=== PATIENT | male | born 1980 | race Caucasian/White ===

== ENCOUNTER 2016-05-09 21:45 | Emergency (ER) | payer MEDICAID ==
--- NOTE | 2016-05-09 22:08 | EDPHY ---
H & P Time Seen by Provider: 05/09/16 22:02 HPI/ROS: Chief complaint. Sinusitis, dental pain HPI. 35-year-old male here with congestion for 2 days and mid facial pain as well as right upper tooth pain that has been ongoing. He has a history of sinus infection and sphenoid sinus surgery. No fever. No sore throat cough trouble breathing. ROS Constitutional. no fever/chills, no weakness Eyes. no problems with vision ENT. Pressure and fullness to cheeks and mid forehead. Pain in the right upper posterior tooth Cardiovascular. no chest pain Respiratory. no shortness of breath, no cough Abdominal. no abdominal pain, no nausea/vomiting, no diarrhea . no problems urinating MS. no calf pain/swelling, no neck/back pain, no joint pain Skin. no rash Lymph. no swollen glands Neuro. no headache, no dizziness, no difficulty walking or with speech Past Medical/Surgical History: Past medical history sinusitis recurrent and sphenoid sinus surgery, hypothyroid Social History: Single, daily smoker, no alcohol Smoking Status: Current every day smoker Physical Exam: General Appearance: Alert well-developed male mild distress vital signs stable Eyes: Pupils equal and round no pallor or injection. ENT, tympanic membranes are normal. No septal hematoma or significant swelling inside the nose. No pharyngeal injection. Tenderness to percussion of the right upper posterior molar. No obvious abscess. Respiratory: There are no retractions, lungs are clear to auscultation. Cardiovascular: Regular rate and rhythm. Gastrointestinal: Abdomen is soft and nontender, no masses, bowel sounds normal. Neurological: Awake and alert, sensory and motor exams grossly normal. Skin: Warm and dry, no rashes. Musculoskeletal: Neck is supple nontender. Extremities symmetrical, full range of motion. Psychiatric: Patient is oriented X 3, there is no agitation. Constitutional: Initial Vital Signs Temperature (C) 37.1 C 05/09/16 21:54 Heart Rate 88 05/09/16 21:54 Respiratory Rate 16 05/09/16 21:54 Blood Pressure 126/86 H 05/09/16 21:54 O2 Sat (%) 94 05/09/16 21:54 O2 Delivery Mode Room Air Allergies/Adverse Reactions: aspirin Allergy (Intermediate, Verified 05/09/16 21:57) Abdominal Pain ibuprofen Allergy (Intermediate, Verified 05/09/16 21:57) Abdominal Pain Home Medications: Medication Instructions Recorded Doxycycline Hyclate 100 mg PO BID #14 tab 06/16/14 Hydrocodone/APAP 5/325 [Woodrow 1 each PO Q4-6PRN PRN #14 tab 06/16/14 5/325 (*)] Levothyroxine [Synthroid] 0 mcg PO DAILY06 06/16/14 Omeprazole [Prilosec 20 mg] 20 mg PO DAILY 06/16/14 Sertraline HCl [Zoloft] 0 mg PO DAILY 06/16/14 Cephalexin [Keflex (*)] 500 mg PO TID #21 cap 09/16/14 LORAZEPAM 05/09/16 Penicillin V Potassium [Penicillin 500 mg PO TID #30 tablet 05/09/16 VK] oxyCODONE/APAP 5/325 [Percocet 1 tab PO Q4-6PRN PRN #7 tab 05/09/16 5/325] Medical Decision Making ED Course/Re-evaluation: Patient remained stable. The patient and I discussed treatment plan including criteria for return importance of follow-up and further evaluation. He expresses understanding and agreement Differential Diagnosis: Patient's sinusitis which is likely viral. He has dental caries and tenderness in the tooth without obvious abscess. We will treat the patient with antibiotics in for pain and he is encouraged to follow up with dental aid Departure - Departure Disposition: Home, Routine, Self-Care Clinical Impression: Pain due to dental caries Acute sinusitis Qualifiers: Sinusitis location: maxillary Recurrence: recurrent Qualified Code(s): J01.01 - Acute recurrent maxillary sinusitis Condition: Good Instructions: Toothache (ED) Additional Instructions: Penicillin as antibiotic. Percocet and Tylenol for pain. Call dental aid tomorrow to arrange follow-up appointment. Return sooner for worsening symptoms Referrals: [facility] [Other] - As per Instructions [facility] [Outside] - 2-3 days, call for appt. Prescriptions: oxyCODONE/APAP 5/325 [Percocet 5/325] 1 tab PO Q4-6PRN PRN #7 tab PRN Reason: Pain, Moderate Penicillin V Potassium [Penicillin VK] 500 mg PO TID #30 tablet
[2016-05-09] MEDS ORDERED: OXYCODONE/APAP 5/325MG PREPACK#4 BTL TAKEHOME ONE (22:23)
[2016-05-09] MEDS ORDERED: PENICILLIN VK 250MG PREPACK#6 BTL TAKEHOME ONE (22:23)
[2016-05-09 23:13] VITALS: BP 144/69; PULSE 85; RESP 18; TEMP 98.1; O2SAT 93
== END 2016-05-09 23:13 | disposition home or self-care (01) ==
DX: K02.9 Dental caries, unspecified (principal); J01.01 Acute recurrent maxillary sinusitis; F17.200 Nicotine dependence, unspecified, uncomplicated

== ENCOUNTER 2016-06-20 00:08 | Emergency (ER) | payer MEDICAID ==
[2016-06-20 00:16] VITALS: BP 119/72; PULSE 93; RESP 16; TEMP 97.7; O2SAT 95
--- NOTE | 2016-06-20 00:59 | EDPHY ---
H & P Stated Complaint: sinus pain tooth pain Time Seen by Provider: 06/20/16 00:33 HPI/ROS: Chief Complaint: Sinus pain, tooth pain HPI: 35-year-old male with a history of sinusitis and dental pain is presenting complaining of worsening central sinus pain today. Patient states he has a history of recurrent sinus infections in the pain is similar to his prior infections. He is also complaining of right lower tooth pain. States he has cracked that knee scheduled for a root canal on Sunday but the pain is worse. He has been taking Tylenol without relief. He is unable to take ibuprofen because he has a history of bleeding ulcer in the past. States he has been seeing [facility] but does not recall the name of the dentist who is going to be doing the root canal. Denies any fevers or chills. No nausea or vomiting. It is noted that he is on a narcotic care plan received a notification 2011 that he was not receive narcotics and the emergency department. ROS: 10 point Review of Systems is negative except as noted in the HPI. PMH: Sinusitis, dental pain Social History: Positive for smoking, no alcohol, no recreational drug use Family History: non-contributory Physical Exam: Gen: Awake, Alert, No Distress HEENT: Face: He has sinus tenderness to percussion of bilateral maxillary sinuses Nose: no rhinorrhea Eyes: PERRLA, EOMI Mouth: Moist mucosa he is tender to percussion of his right lower 2nd molar. There is no gingival erythema. Ext: no edema, non-tender Skin: no rash Neuro: CN II-XII intact, Sensation grossly intact, Strength 5/5 in bilateral upper and lower extremities - Personal History Current Tetanus/Diphtheria Vaccine: Yes Current Tetanus Diphtheria and Acellular Pertussis (TDAP): Yes Tetanus Vaccine Date: <10 years - Medical/Surgical History Hx Asthma: No Hx Chronic Respiratory Disease: No Hx Diabetes: No Hx Cardiac Disease: No Hx Renal Disease: No Hx Cirrhosis: No Hx Alcoholism: No Hx HIV/AIDS: No Hx Splenectomy or Spleen Trauma: No Other PMH: hypothyroid. sinus surgery 2002,. abd surgery 2014 - Social History Smoking Status: Current every day smoker Constitutional: Initial Vital Signs Temperature (C) 36.5 C 06/20/16 00:13 Heart Rate 93 06/20/16 00:13 Respiratory Rate 16 06/20/16 00:13 Blood Pressure 119/72 06/20/16 00:13 O2 Sat (%) 95 06/20/16 00:13 O2 Delivery Mode Room Air Allergies/Adverse Reactions: aspirin Allergy (Intermediate, Verified 06/20/16 00:11) Abdominal Pain ibuprofen Allergy (Intermediate, Verified 06/20/16 00:11) Abdominal Pain Home Medications: Medication Instructions Recorded Levothyroxine [Synthroid] 0 mcg PO DAILY06 06/16/14 Omeprazole [Prilosec 20 mg] 20 mg PO DAILY 06/16/14 Sertraline HCl [Zoloft] 0 mg PO DAILY 06/16/14 Xanax 06/20/16 Medical Decision Making ED Course/Re-evaluation: Patient presenting complaining of dental pain and sinus pain. He is on a narcotic plan. I have offered a alveolar nerve block as well as starting him on antibiotics for possible sinus infection. Patient is refusing these. He is asking for some narcotic pills to go home with such as Percocet. I have informed him that he is on a narcotic caution list in I am not comfortable giving him narcotics at this point but I am happy to provide him with other analgesia. He is refusing any other analgesia at this time and walked out of the emergency department without any further treatment. Departure - Departure Disposition: Home, Routine, Self-Care Clinical Impression: Pain, dental, Sinus pain Condition: Good Instructions: Toothache (ED), Sinusitis (ED) Additional Instructions: Follow up with her dentist as scheduled on Sunday for your root canal. Follow up with primary care physician in 2-3 days for further evaluation of your sinusitis. Referrals: [facility] [Other] - As per Instructions
== END 2016-06-20 01:02 | disposition home or self-care (01) ==
DX: K08.89 Other specified disorders of teeth and supporting structures (principal); R51 Headache; F17.200 Nicotine dependence, unspecified, uncomplicated